=== PATIENT | female | born 1980 | race Two or more races ===

== ENCOUNTER 2020-07-31 08:30 | Inpatient (IN) | payer OTHER ==
[~2020-07-31] VITALS: Ht 167.6 cm; Wt 70.3 kg
[2020-07-31] MEDS ORDERED: ZYRTEC10 M3 PO (10:07)
[2020-08-09] MEDS ORDERED: IBUPROFEN800 MG PO (07:26)
[2020-08-09] MEDS ORDERED: OXYC1TAB9 PO (07:26)
== END 2020-08-09 09:33 | disposition home or self-care (01) | DRG 743 ==
LOC: O/R 08-07 08:10 → OB/GYN 08-07 08:10 → SURH 08-07 08:30 → OB/GYN 08-07 15:57
PROVIDERS: ADMIT Obstetrics & Gynecology Gynecology; ATTEND Obstetrics & Gynecology Gynecology
PROC: 0UB70ZZ Excision of Bilateral Fallopian Tubes, Open Approach (ICD-10-PCS; 2020-08-07)
PROC: 0UT90ZZ Resection of Uterus, Open Approach (ICD-10-PCS; principal; 2020-08-07 10:00)
DX: N72 Inflammatory disease of cervix uteri (principal); N83.8 Other noninflammatory disorders of ovary, fallopian tube and broad ligament; D25.9 Leiomyoma of uterus, unspecified; N92.0 Excessive and frequent menstruation with regular cycle

== ENCOUNTER 2020-08-12 10:11 | Emergency (ER) | payer OTHER ==
[~2020-08-12] VITALS: Ht 167.6 cm; Wt 70.3 kg
[~2020-08-12 10:11] MED LIST: IBUPROFEN800 MG PO; OXYC1TAB9 PO; ZYRTEC10 M3 PO
== END 2020-08-12 18:40 | disposition home or self-care (01) ==
LOC: ER 10:11
DX: K29.70 Gastritis, unspecified, without bleeding (principal); R10.84 Generalized abdominal pain